=== PATIENT | male | born 1995 | race Caucasian/White ===

== ENCOUNTER 2016-10-16 14:58 | Inpatient (IN) | payer OTHER ==
[~2016-10-16] VITALS: Ht 172.7 cm; Wt 63.8 kg
[2016-10-16] MEDS ORDERED: ACET500C PO (15:10)
[2016-10-16] MEDS ORDERED: DICL500C PO (15:10)
[2016-10-16] MEDS ORDERED: NAFCILLIN SOD 2 GM in D5W MINI-BAG PLUS 100 ML IV STA (18:44)
[2016-10-16 18:45] LABS: BASO % 0.5 % (0.0-1.0); EOS # 0.1 K/mm3 (0.0-0.50); LARGE UNSTAINED CELL # 0.2 K/mm3 (0.0-0.4); LARGE UNSTAINED CELL % 1.9 % (0.0-4.0); LYMPH # 1.3 K/mm3 (1.5-6.5); LYMPH % 14.8 % (24.0-44.0); MEAN CORPUSCULAR HEMOGLOBIN 30.8 pg (27.0-33.0); MEAN CORPUSCULAR HGB CONC 35.8 g/dl (32.0-36.5); MEAN CORPUSCULAR VOLUME 86.1 fl (80.0-96.0); MONO # 0.7 K/mm3 (0.0-0.8); MONO % 9.7 % (0.0-5.0); NEUTROPHILS # 5.5 K/mm3 (1.8-7.7); NEUTROPHILS % 72.1 % (36.0-66.0); PLATELET COUNT, AUTOMATED 233 k/mm3 (150-450); RED CELL DISTRIBUTION WIDTH 12.4 % (11.5-14.5); WHITE BLOOD COUNT 7.6 K/mm3 (4.0-10.0)
[2016-10-16] MEDS ORDERED: metroNIDAZOLE 500 MG in APPROPRIATE DILUENT 1 EA IV ONE (18:45)
[2016-10-16] MEDS ORDERED: KETOROLAC 30 MG/ML VIAL (J1885) IV ONE (18:45)
[2016-10-16] MEDS ORDERED: ISOVUE-370 76% 100ML VIAL (Q9967) As Ordered ONE (19:01)
[2016-10-16 19:04] LABS: ERYTHROCYTE SEDIMENTATION RATE 10 mm/hr (0-15)
[2016-10-16 19:06] LABS: ALBUMIN 4.4 GM/DL (3.2-5.2); ALBUMIN/GLOBULIN RATIO 1.26 (1.00-1.93); ALKALINE PHOSPHATASE 82 U/L (45-117); ALT/SGPT 24 U/L (12-78); ANION GAP 12 MEQ/L (8-16); AST/SGOT 14 U/L (15-37); BILIRUBIN,TOTAL 0.7 MG/DL (0.2-1.0); BLOOD UREA NITROGEN 9 MG/DL (7-18); CALCIUM LEVEL 9.1 MG/DL (8.5-10.1); CARBON DIOXIDE LEVEL 26 MEQ/L (21-32); CHLORIDE LEVEL 101 MEQ/L (98-107); CREATININE FOR GFR 1.19 MG/DL (0.70-1.30); GLOMERULAR FILTRATION RATE > 60.0 (>60); GLUCOSE, FASTING 96 MG/DL (70-105); POTASSIUM SERUM 4.1 MEQ/L (3.5-5.1); SODIUM LEVEL 139 MEQ/L (136-145); TOTAL PROTEIN 7.9 GM/DL (6.4-8.2)
[2016-10-16] MEDS ORDERED: NS 1,000 ML IV ONE (20:15)
--- NOTE | 2016-10-16 20:20 | REPUSA ---
CLINICAL HISTORY: RIGHT PAROTIDITIS? TECHNIQUE: Multiple axial CT images were obtained through the neck with IV contrast material. MPR cor onal and sagittal sequences were obtained. COMMENTS: Note is made of a markedly enlarged edematous right parotid gland compatible with parotiditis. The l eft parotid gland is normal. The remaining salivary glands are normal. The oropharyngeal soft tissues are normal and bilaterally symmetric. The piriform sinuses are normal. There is no supra or infraglottic laryngeal mass. The proximal trachea is normal. There is no paravertebral soft tissue mass. There is no deep cervical or jugular lymphadenopathy. The paravertebral soft tissue space is normal. Limited images through the posterior fossa demonstrate no evidence for tonsilar herniation. Evaluation of the visualized lung apices reveals no evidence for abnormality. There is no evidence for abnormal enhancement. IMPRESSION: Markedly enlarged edematous right parotid gland compatible with parotiditis. Thank you for your kind referral of this patient.
[2016-10-16] MEDS ORDERED: BISACODYL 5 MG TAB PO PRN (21:45)
[2016-10-16] MEDS ORDERED: MORPHINE 4 MG/ML 1ML SYRINGE IV ONE (22:00)
[2016-10-16] MEDS ORDERED: ACETAMINOPHEN TAB 650MG DOSE (2X325MG) PO SCH (22:00)
[2016-10-16] MEDS ORDERED: IBUPROFEN 400 MG TAB PO SCH (22:00)
[2016-10-17] MEDS: NAFCILLIN SOD 1 GM in D5W MINI-BAG PLUS 100 ML IV SCH ×6 (00:18→20:43)
[2016-10-17 01:00] VITALS: BP 119/73
[2016-10-17] MEDS: NS 1,000 ML IV SCH ×2 (01:26→16:58)
[2016-10-17] MEDS: metroNIDAZOLE 500 MG in APPROPRIATE DILUENT 1 EA IV SCH ×3 (02:42→19:12)
--- NOTE | 2016-10-17 03:13 | HPE ---
DATE OF ADMISSION: 10/16/2016 PRIMARY CARE PROVIDER: Dominiquealice Tineo CHIEF COMPLAINT: Right-sided facial swelling. 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 He was seen at an urgent care on Monday. He was told that he had parotitis, started on dicloxacillin and told to have lemon candies. He did this for 24 hours; however, the swelling in his face worsened to the point that he was having extreme difficulty eating food and great difficulty chewing. He had been having fevers and chills at home as well. He denies chest pain, shortness of breath, nausea, vomiting, or diarrhea. PAST MEDICAL HISTORY: Tobacco use. ALLERGIES: No known drug allergies. PAST SURGICAL HISTORY: None. SOCIAL HISTORY: He is a soldier. He rarely consumes alcohol. He has not had a drink in the last six months. He smokes approximately one pack of cigarettes per day. HOME MEDICATIONS: - dicloxacillin 500 mg four times a day - acetaminophen 500 mg as needed for pain REVIEW OF SYSTEMS: Negative other than history of present illness (HPI). FAMILY HISTORY: Noncontributory. PHYSICAL EXAMINATION: Temperature 100, pulse 103, respiratory rate 18, blood pressure 135/91, oxygen saturation 99% on room air. GENERAL: He is a well-built, muscular young man lying flat on the stretcher. He does not appear to be in any acute distress. HEENT: There is notable swelling and erythema over his right parotid gland. It is tender to palpation. He has difficulty opening his mouth. The area of erythema is mild. The tenderness extends all the way around to the occiput and into the right submandibular area. No obvious cervical lymphadenopathy, but difficult in the submandibular area secondary to the swelling. His neck is examined and there does not appear to be any purulent drainage at this time. Dentition does not appear to be poor. CARDIOVASCULAR: S1, S2, regular. RESPIRATORY EXAM: Clear. ABDOMEN: Benign. EXTREMITIES: No clubbing, cyanosis, or edema. LABORATORY STUDIES: WBC 7.6, hemoglobin 16.4, hematocrit 45.8, platelet count 233. Chemistry panel: Sodium 139, potassium 4.1, chloride 101, bicarbonate 26, BUN 9, creatinine 1.1. MICROBIOLOGY: Blood cultures have been drawn. IMAGING: Patient had a CT scan of the neck which revealed enlarged, edematous right parotid gland compatible with parotitis. There is no mention of fluid collection or stone. ASSESSMENT AND PLAN: This is a 21-year-old man with what appears to be parotitis on the right. 1. Right-sided acute parotitis. I will start the patient on IV antibiotics, IV Flagyl and nafcillin. I will also start him on normal saline. CT mentions no obstructing stone. The patient did try sucking on lemon candies at home, which only made his symptoms worse. There does not appear to be any fluid collection. We will give him a trial of 48 hours of IV antibiotics. If his symptoms improve, he will likely be transitioned to oral medications and discharged. However, if he fails to improve, could consider an ears, nose, and throat (ENT) consultation or re-imaging to see if a fluid collection has developed if that were to be the case. In the interim, we will provide him with round the clock Tylenol and ibuprofen for pain control and Percocet for breakthrough pain. We will check an amylase level. Given that he has such difficulty opening his mouth, I will place him on a pureed diet. 2. Deep vein thrombosis (DVT) prophylaxis. Early ambulation. DISPOSITION: The patient has been admitted to the medical-surgical floor to Dr. Link's service who will continue following the patient at 7 a.m.
[2016-10-17] MEDS: oxyCODONE 5MG TAB PO PRN ×2 (04:30→14:42)
[2016-10-17 06:37] LABS: MEAN CORPUSCULAR HEMOGLOBIN 30.7 pg (27.0-33.0); MEAN CORPUSCULAR HGB CONC 35.6 g/dl (32.0-36.5); MEAN CORPUSCULAR VOLUME 86.4 fl (80.0-96.0); RED CELL DISTRIBUTION WIDTH 12.4 % (11.5-14.5); WHITE BLOOD COUNT 5.8 K/mm3 (4.0-10.0)
[2016-10-17 06:56] LABS: ANION GAP 7 MEQ/L (8-16); BLOOD UREA NITROGEN 9 MG/DL (7-18); CALCIUM LEVEL 8.1 MG/DL (8.5-10.1); CARBON DIOXIDE LEVEL 28 MEQ/L (21-32); CHLORIDE LEVEL 107 MEQ/L (98-107); CREATININE FOR GFR 1.12 MG/DL (0.70-1.30); GLOMERULAR FILTRATION RATE > 60.0 (>60); GLUCOSE, FASTING 93 MG/DL (70-105); POTASSIUM SERUM 3.9 MEQ/L (3.5-5.1); SODIUM LEVEL 142 MEQ/L (136-145)
[2016-10-17 08:00] VITALS: BP 120/63
[2016-10-17] MEDS: IBUPROFEN 400 MG TAB PO SCH ×2 (08:12→16:55)
[2016-10-17] MEDS: ACETAMINOPHEN TAB 650MG DOSE (2X325MG) PO SCH ×2 (12:56→20:43)
[2016-10-17 16:00] VITALS: BP 123/62
[2016-10-17 20:00] VITALS: BP 118/64
[2016-10-18] MEDS: NAFCILLIN SOD 1 GM in D5W MINI-BAG PLUS 100 ML IV SCH ×6 (00:47→20:15)
[2016-10-18] MEDS: IBUPROFEN 400 MG TAB PO SCH ×3 (00:48→16:56)
[2016-10-18] MEDS: metroNIDAZOLE 500 MG in APPROPRIATE DILUENT 1 EA IV SCH ×3 (03:32→19:07)
[2016-10-18 04:00] VITALS: BP 125/77
[2016-10-18] MEDS: ACETAMINOPHEN TAB 650MG DOSE (2X325MG) PO SCH ×3 (04:39→20:16)
[2016-10-18 07:18] LABS: ANION GAP 9 MEQ/L (8-16); BLOOD UREA NITROGEN 7 MG/DL (7-18); CALCIUM LEVEL 8.6 MG/DL (8.5-10.1); CARBON DIOXIDE LEVEL 28 MEQ/L (21-32); CHLORIDE LEVEL 109 MEQ/L (98-107); GLOMERULAR FILTRATION RATE > 60.0 (>60); GLUCOSE, FASTING 86 MG/DL (70-105); POTASSIUM SERUM 4.4 MEQ/L (3.5-5.1); SODIUM LEVEL 146 MEQ/L (136-145)
[2016-10-18 07:23] LABS: MEAN CORPUSCULAR HEMOGLOBIN 30.4 pg (27.0-33.0); MEAN CORPUSCULAR HGB CONC 34.8 g/dl (32.0-36.5); MEAN CORPUSCULAR VOLUME 87.3 fl (80.0-96.0); RED CELL DISTRIBUTION WIDTH 12.4 % (11.5-14.5); WHITE BLOOD COUNT 3.3 K/mm3 (4.0-10.0)
--- NOTE | 2016-10-18 07:34 | IPN ---
DATE: 10/17/2016 Patient is seen and examined at the bedside. Chart has been reviewed. Patient today still complains of pain when he tries to open his mouth, difficulty with chewing. No fever or chills. Pain is improving. Swelling has improved from yesterday. Vital signs: Temperature 97.6, pulse 70, respiratory rate 16, blood pressure 120/63, 100% on room air. Generally, patient is awake, alert, oriented times three. Difficult to answer questions due to difficulty with pain at the right submandibular area. Patient has no significant erythema, which is different from yesterday, according to the patient and the sister at the bedside. Currently with difficulty opening his mouth. Some significant tenderness from the occiput to the right submandibular area. Mild cervical lymphadenopathy on the right. No drainage. With poor dentition. Heart: S1, S2. Sinus rhythm. Abdomen is soft, nontender nondistended. Extremities: No cyanosis, clubbing or pitting edema. Laboratory data has been reviewed. Microbiology has been reviewed. Imaging studies: CT neck: Enlarged edematous right parotid gland compatible with parotitis. ASSESSMENT AND PLAN: This is a 21-year-old male with a history of active tobacco use presents with outpatient failure with treatment for parotitis. He was seen in urgent care on Monday, was told that the patient should take dicloxacillin with lemon candies. CURRENT ISSUES: 1. Right-sided acute parotitis on intravenous (IV) antibiotics, Flagyl and nafcillin. No fluid collection. Patient has improved with pain and significant erythema. Continue with pain control, IV fluids as needed. ENT consult. 2. Deep venous thrombosis (DVT) prophylaxis, early ambulation. [facility]
--- NOTE | 2016-10-18 12:39 | IPN ---
DATE: 10/18/2016 SUBJECTIVE: Patient seen and examined in the room today. Patient stated right face swelling and discomfort have been improving. Patient is tolerating soft diet. However, he still cannot open his mouth fully. No overnight events were reported. Vital signs: Temperature is 96.6, pulse 59, respiration 18, blood pressure 125/77, pulse ox 99% on room air. General: No sign of acute distress. Alert and oriented times three. HEENT: Tenderness to palpation in the right parotid gland. Unable to open the oral cavity fully due to discomfort. Normocephalic. Cardiovascular: S1, S2. Regular rate. Lungs: Clear to auscultation bilaterally. Abdomen: Soft, nontender, nondistended. Bowel sounds present. Extremities: No edema. No cyanosis. LABORATORY DATA: WBC 3.3, hemoglobin 13.9, hematocrit 40, platelet count 183. Sodium is 146, potassium 4.4, chloride 109, carbon dioxide 28, BUN 7, creatinine 1, glomerular filtration rate greater than 60, fasting glucose is 86, calcium is 8.6. ASSESSMENT AND PLAN: 1. Patient has right sided parotitis. Patient's failed outpatient antibiotic regimen. Patient was on dicloxacillin given by urgent care. Patient is on IV nafcillin and IV Flagyl, continues to show improvement. Patient currently only able to tolerate soft diet. Patient's pain is controlled with current pain regimen including Tylenol and ibuprofen. Patient has as needed Percocet, however, patient does not need Percocet in the past 24 hours. 2. Deep venous thrombosis (DVT) prophylaxis. Patient does not have increased risk of DVT. Encouraged ambulations.
[2016-10-18 16:00] VITALS: BP 117/61
[2016-10-18] MEDS: NS 1,000 ML IV SCH (17:01)
[2016-10-18 20:00] VITALS: BP 113/56
[2016-10-19] VITALS: BP 116/66
[2016-10-19] MEDS: NAFCILLIN SOD 1 GM in D5W MINI-BAG PLUS 100 ML IV SCH ×3 (00:11→08:11)
[2016-10-19] MEDS: IBUPROFEN 400 MG TAB PO SCH ×2 (00:12→09:32)
[2016-10-19] MEDS: metroNIDAZOLE 500 MG in APPROPRIATE DILUENT 1 EA IV SCH (03:39)
[2016-10-19] MEDS: ACETAMINOPHEN TAB 650MG DOSE (2X325MG) PO SCH (05:40)
[2016-10-19 08:00] VITALS: BP 103/53
[2016-10-19 08:03] LABS: ANION GAP 8 MEQ/L (8-16); BLOOD UREA NITROGEN 6 MG/DL (7-18); CALCIUM LEVEL 8.4 MG/DL (8.5-10.1); CARBON DIOXIDE LEVEL 30 MEQ/L (21-32); CHLORIDE LEVEL 108 MEQ/L (98-107); CREATININE FOR GFR 0.99 MG/DL (0.70-1.30); GLOMERULAR FILTRATION RATE > 60.0 (>60); GLUCOSE, FASTING 92 MG/DL (70-105); POTASSIUM SERUM 4.1 MEQ/L (3.5-5.1); SODIUM LEVEL 146 MEQ/L (136-145)
[2016-10-19 08:33] LABS: MEAN CORPUSCULAR HEMOGLOBIN 29.2 pg (27.0-33.0); MEAN CORPUSCULAR HGB CONC 33.4 g/dl (32.0-36.5); MEAN CORPUSCULAR VOLUME 87.5 fl (80.0-96.0); RED CELL DISTRIBUTION WIDTH 12.4 % (11.5-14.5); WHITE BLOOD COUNT 2.9 K/mm3 (4.0-10.0)
[2016-10-19] MEDS ORDERED: ZYVO100T PO (10:43)
[2016-10-19] MEDS ORDERED: IBUP40TA PO (10:43)
[2016-10-19] MEDS ORDERED: MAPA325T2 PO (10:43)
[2016-10-19] MEDS ORDERED: AUGM875T27 PO (10:43)
--- NOTE | 2016-10-19 16:56 | DSES ---
DATE OF ADMISSION: 10/16/2016 DATE OF DISCHARGE: 10/19/2016 PRIMARY CARE PROVIDER: Catina alvarez. CONSULTANTS: None. PROCEDURES: None. COMPLICATIONS: None. ADMISSION/DISCHARGE DIAGNOSES: 1. Right-sided parotiditis. 2. Tobacco abuse. 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 Patient was initially seen in urgent care and patient was started on dicloxacillin; however, patient's symptoms continued to get worse. Patient came to [facility] on 10/16/2016 and patient was admitted for right-sided parotiditis. Patient was started on intravenous (IV) Flagyl and nafcillin. Patient was also started on IV fluids due to the difficulty with oral intake. Patient was admitted to the medical/surgical floor under inpatient status. With antibiotic use, patient's swelling and pain showed gradual improvement. Later, patient was able to open the oral cavity and patient started to tolerate oral intake. Patient's pain is also controlled with intermittent pain medication. On 10/19/2016, patient showed significant improvements and patient was determined to be medically stable for discharge with recommendation to finish the course of antibiotics and patient should follow with primary care provider within one week. OBJECTIVE: VITAL SIGNS: Temperature 97.1, pulse 71, respirations 16, blood pressure 103/53, pulse oximetry 100% on room air. LABORATORY DATA: WBC 2.9, hemoglobin 13.7, hematocrit 40.9, platelet count 187. Sodium 146, potassium 4.1, chloride 108, carbon dioxide 30, BUN 6, creatinine 0.99, GFR greater than 60, fasting glucose 92, calcium 8.4, C-reactive protein 6.2. IMAGING STUDY: CT of the neck with contrast showed markedly enlarged edematous right parotid gland, compatible with parotiditis. DISCHARGE MEDICATION: - Tylenol 650 mg by mouth every 8 hours as needed - Augmentin 875 mg by mouth twice a day for seven days - Zyvox 600 mg by mouth twice a day for seven days - ibuprofen 400 mg by mouth every 8 hours as needed DISCHARGE INSTRUCTIONS: 1. Discharge to home. 2. Activity as tolerated. 3. Diet as tolerated. 4. Patient should follow up with primary care provider within one week. DISCHARGE CONDITION: Stable. DISCHARGE TIME: Greater than 30 minutes.
== END 2016-10-19 12:55 | disposition home or self-care (01) | DRG 156 ==
LOC: M ED 16:02 → M ED INP 21:32 → M PED 10-17 00:57
PROVIDERS: ADMIT Internal Medicine; ATTEND Internal Medicine
DX: K11.21 Acute sialoadenitis (principal); F17.210 Nicotine dependence, cigarettes, uncomplicated